=== PATIENT | female | born 1970 ===

== ENCOUNTER 2019-06-28 11:45 | Inpatient (IN) | payer OTHER ==
[~2019-06-28] VITALS: Ht 147.3 cm; Wt 64.9 kg
[~2019-06-28 11:45] MED LIST: AMBIEN10 MG PO; CLONAZEPAM1 MG PO; DAFLONEX; GABAPENTIN800 MG PO; PRILOSEC OTC20 MG PO; PROZAC40 MG PO; SEROQUEL50 MG PO; TRILEPTAL150 MG PO; XYZAL2.5 MG/5 M PO
[2019-07-03] MEDS ORDERED: XYZAL5 MG PO (09:39)
[2019-07-05] MEDS ORDERED: OXYC1TAB9 PO (07:42)
== END 2019-07-05 10:19 | DRG 743 ==
LOC: O/R 11:45 → OB/GYN 07-03 06:48 → SURH 07-03 11:00 → OB/GYN 07-03 13:42
PROVIDERS: ADMIT Obstetrics & Gynecology Gynecology
PROC: 0UT70ZZ Resection of Bilateral Fallopian Tubes, Open Approach (ICD-10-PCS; 2019-07-03)
PROC: 0UT90ZZ Resection of Uterus, Open Approach (ICD-10-PCS; principal; 2019-07-03 11:00)
DX: D25.1 Intramural leiomyoma of uterus (principal); D25.0 Submucous leiomyoma of uterus; I10 Essential (primary) hypertension; D25.2 Subserosal leiomyoma of uterus; N80.0 Endometriosis of uterus; N84.0 Polyp of corpus uteri; N72 Inflammatory disease of cervix uteri; N73.6 Female pelvic peritoneal adhesions (postinfective)